=== PATIENT | male | born 1955 | race Caucasian/White ===

== ENCOUNTER 2017-01-02 20:36 | Emergency (ER) | payer MEDICARE ==
--- NOTE | ~2017-01-02 | CR126 ---
[facility]. [facility] A Service of [facility] & [facility] RADIOLOGY TEXT RESULTS PATIENT: ANDIE BEAULIEU LOCATION: SED : 55 UNIT #: [id number] AGE: [address]: JAMES CODY PA-C SEX: M ORDER DR: [id number] [address] [address] [id number] E MR#: [id number] Acc #: [id number] NAME: ANDIE BEAULIEU : 1955 SEX: M STUDY DATE/TIME: 01/02/2017 20:24 UNIT: SED ROOM: STUDY DESCRIPTION: CR Foot Complete Min 3 View Lt Attending Physician: James Cody Pa-C Ordering Physician: James Cody Pa-C Primary Care Physician: No Primary Care Physician MEDICAL IMAGING REPORT This report is preliminary unless electronic signature is present. EXAM Left foot, three views HISTORY Chronic pain in nonhealing wound, second digit. No injury. FINDINGS Two views of the left foot demonstrate satisfactory bone alignment. Mild generalized demineralization. No fracture or dislocation. Mild degenerative changes at the first MTP joint. Tiny plantar calcaneal spur. IMPRESSION No acute findings. No fracture or dislocation. Mild degenerative changes at the first MTP joint. Dictated by... Evaristo Bain M.D. THIS IS AN ELECTRONICALLY VERIFIED REPORT Evaristo Bain M.D. at 01/03/2017 8:51 PM PRISCILLA/gatito TD: 01/02/2017 22:28 JOB #: [id number] MEDICAL IMAGING REPORT Page 1 of 1
== END 2017-01-02 21:25 | disposition home or self-care (01) ==
LOC: SED 20:36
DX: L03.116 Cellulitis of left lower limb (principal); S90.415A Abrasion, left lesser toe(s), initial encounter; Z23 Encounter for immunization
CPT/HCPCS: 29540; 73630; 90471; 90715; 99283